=== PATIENT | male | born 1960 | race Caucasian/White ===

== ENCOUNTER 2022-06-24 20:46 | Inpatient (IN) | payer MEDICAID ==
[2022-06-24] MEDS ORDERED: Furosemide 40 MG/4 ML VIAL IVPUSH ONE (21:21)
[2022-06-24] MEDS: Sodium Chloride 0.9% 10 ML Syringe FLUSH PRN (21:26)
[2022-06-24 21:37] LABS: INR 1.25; PROTHROMBIN TIME 13.2 SECONDS (9.7-12.0)
[2022-06-24 21:38] LABS: PTT,PARTIAL THROMBOPLSTIN TIME 23.4 SECONDS (21.7-31.4)
[2022-06-24 21:39] LABS: BASE EXCESS ARTERIAL -1.9 (-2-2.0); BICARBONATE,ARTERIAL 22.4 meq/L (22.0-26.0); O2 SATURATION ARTERIAL 90.4 % (96.0-97.0); PCO2 ARTERIAL 38.9 mmHg (35.0-45.0)
[2022-06-24 21:42] LABS: BASOPHILS ABSOLUTE AUTO 0.05 K/mm3 (0.01-0.08); BASOPHILS PERCENT AUTO 0.5 % (0.1-1.2); EOSINOPHILS ABSOLUTE AUTO 0.25 K/mm3 (0.04-0.54); EOSINOPHILS PERCENT AUTO 2.6 (0.8-7.0); HEMATOCRIT 50.1 % (40.1-51.0); HEMOGLOBIN 15.9 gm/dl (13.7-17.5); IMMATURE GRAN ABSOLUTE AUTO 0.07 K/mm3 (0.00-0.10); IMMATURE GRAN PERCENT AUTO 0.7 % (<=1.0); LYMPHOCYTES ABSOLUTE AUTO 2.04 K/mm3 (1.32-3.57); LYMPHOCYTES PERCENT AUTO 20.9 % (21.8-53.1); MEAN CORPUSCULAR HEMOGLOBIN 29.3 pg (25.7-32.2); MEAN CORPUSCULAR HGB CONC 31.7 g/dl (32.2-35.5); MEAN CORPUSCULAR VOLUME 92.3 fl (79.0-92.2); MEAN PLATELET VOLUME 12.8 fl (9.4-12.3); MONOCYTES ABSOLUTE AUTO 0.88 K/mm3 (0.30-0.82); NEUTROPHILS ABSOLUTE AUTO 6.48 K/mm3 (1.78-5.38); NEUTROPHILS PERCENT AUTO 66.3 % (34.0-67.9); PLATELET COUNT,PLT 148 K/mm3 (163-337); RED BLOOD CELL COUNT 5.43 M/mm3 (4.63-6.08); WHITE BLOOD CELL COUNT,WBC 9.77 K/mm3 (4.23-9.07)
[2022-06-24] MEDS ORDERED: LORazepam 2 MG/ML SDV IVPUSH ONE (21:42)
[2022-06-24 21:49] LABS: A/G RATIO 0.7 (1-2); ANION GAP 12.5 (5-15); BILIRUBIN TOTAL 1.1 mg/dL (0.2-1.0); BUN/CREATININE RATIO 16.9 (14-18); C-REACTIVE PROTEIN 1.2 mg/dL (<1.0); CREATININE 1.3 mg/dL (0.7-1.3); EST CRCL DRUG DOSING (CG) 58.46 mL/min; POTASSIUM,K 4.5 mEq/L (3.5-5.1); PROTEIN TOTAL,TP 7.1 g/dl (6.4-8.2)
[2022-06-24] MEDS ORDERED: Diltiazem 25 MG/5 ML SDV IVPUSH ONE ×2 (22:16→22:51)
[2022-06-24 22:30] LABS: CORONAVIRUS COVID-19 NAA NEGATIVE (NEGATIVE); INFLUENZA A NAA NEGATIVE (NEGATIVE); RESPIRATORY SYNCYTIAL VIR NAA NEGATIVE (NEGATIVE)
[2022-06-24] MEDS ORDERED: Diltiazem 125 MG in Sodium Chloride 0.9% 100 ML IV SCH (23:45)
[2022-06-25] MEDS ORDERED: Furosemide 40 MG/4 ML VIAL IVPUSH ONE ×3 (00:28→06:55)
[2022-06-25] MEDS ORDERED: Apixaban 5 MG Tab PO ONE (01:40)
[2022-06-25 05:59] LABS: BASOPHILS ABSOLUTE AUTO 0.03 K/mm3 (0.01-0.08); BASOPHILS PERCENT AUTO 0.3 % (0.1-1.2); EOSINOPHILS ABSOLUTE AUTO 0.33 K/mm3 (0.04-0.54); EOSINOPHILS PERCENT AUTO 3.7 (0.8-7.0); HEMATOCRIT 44.7 % (40.1-51.0); IMMATURE GRAN ABSOLUTE AUTO 0.06 K/mm3 (0.00-0.10); IMMATURE GRAN PERCENT AUTO 0.7 % (<=1.0); LYMPHOCYTES ABSOLUTE AUTO 1.86 K/mm3 (1.32-3.57); LYMPHOCYTES PERCENT AUTO 20.7 % (21.8-53.1); MEAN CORPUSCULAR HEMOGLOBIN 29.4 pg (25.7-32.2); MEAN CORPUSCULAR HGB CONC 32.2 g/dl (32.2-35.5); MEAN CORPUSCULAR VOLUME 91.4 fl (79.0-92.2); MEAN PLATELET VOLUME 13.5 fl (9.4-12.3); MONOCYTES ABSOLUTE AUTO 0.94 K/mm3 (0.30-0.82); MONOCYTES PERCENT AUTO 10.5 % (5.3-12.2); NEUTROPHILS ABSOLUTE AUTO 5.77 K/mm3 (1.78-5.38); NEUTROPHILS PERCENT AUTO 64.1 % (34.0-67.9); PLATELET COUNT,PLT 130 K/mm3 (163-337); RED BLOOD CELL COUNT 4.89 M/mm3 (4.63-6.08); WHITE BLOOD CELL COUNT,WBC 8.99 K/mm3 (4.23-9.07)
[2022-06-25] MEDS ORDERED: Diltiazem IR 30 MG Tab PO ONE (06:00)
[2022-06-25 06:13] LABS: HEMOGLOBIN 14.4 gm/dl (13.7-17.5)
[2022-06-25 06:14] LABS: BUN/CREATININE RATIO 21.1 (14-18); CALCIUM 7.9 mg/dL (8.5-10.1); CREATININE 0.9 mg/dL (0.7-1.3); EST CRCL DRUG DOSING (CG) 84.44 mL/min
[2022-06-25 06:23] LABS: ANION GAP 12.5 (5-15)
[2022-06-25 06:26] LABS: POTASSIUM,K 3.5 mEq/L (3.5-5.1)
[2022-06-25] MEDS: Nicotine 14 MG/24 Hr Patch TRDERM SCH (09:10)
[2022-06-25] MEDS: Insulin Regular, Human 100 Units/ML 3 ML Vial SUBCUT SCH ×3 (09:12→18:39)
[2022-06-25] MEDS: Apixaban 5 MG Tab PO SCH ×2 (09:12→20:53)
[2022-06-25] MEDS: cefTRIAXone 2 GM in Sodium Chloride 0.9% 100 ML IV SCH (10:23)
[2022-06-25 10:41] LABS: HEMOGLOBIN A1C 12.7 %
[2022-06-25] MEDS: LORazepam 1 MG Tab PO SCH ×2 (13:32→18:40)
[2022-06-25] MEDS ORDERED: metFORMIN 500 MG Tab PO SCH (17:00)
[2022-06-25] MEDS: metFORMIN 500 MG Tab PO SCH (17:20)
[2022-06-25] MEDS: Diltiazem IR 30 MG Tab PO SCH (18:00)
[2022-06-26] MEDS: Diltiazem IR 30 MG Tab PO SCH ×4 (00:07→17:13)
[2022-06-26] MEDS: LORazepam 1 MG Tab PO SCH ×4 (00:07→18:06)
[2022-06-26] MEDS: metFORMIN 500 MG Tab PO SCH ×2 (06:00→17:13)
[2022-06-26 06:05] LABS: BASOPHILS ABSOLUTE AUTO 0.02 K/mm3 (0.01-0.08); BASOPHILS PERCENT AUTO 0.2 % (0.1-1.2); EOSINOPHILS ABSOLUTE AUTO 0.48 K/mm3 (0.04-0.54); EOSINOPHILS PERCENT AUTO 5.3 (0.8-7.0); HEMATOCRIT 47.3 % (40.1-51.0); HEMOGLOBIN 15.3 gm/dl (13.7-17.5); IMMATURE GRAN ABSOLUTE AUTO 0.07 K/mm3 (0.00-0.10); IMMATURE GRAN PERCENT AUTO 0.8 % (<=1.0); LYMPHOCYTES ABSOLUTE AUTO 1.76 K/mm3 (1.32-3.57); LYMPHOCYTES PERCENT AUTO 19.4 % (21.8-53.1); MEAN CORPUSCULAR HEMOGLOBIN 29.7 pg (25.7-32.2); MEAN CORPUSCULAR HGB CONC 32.3 g/dl (32.2-35.5); MEAN CORPUSCULAR VOLUME 91.8 fl (79.0-92.2); MEAN PLATELET VOLUME 12.7 fl (9.4-12.3); MONOCYTES PERCENT AUTO 12.1 % (5.3-12.2); NEUTROPHILS ABSOLUTE AUTO 5.66 K/mm3 (1.78-5.38); NEUTROPHILS PERCENT AUTO 62.2 % (34.0-67.9); PLATELET COUNT,PLT 133 K/mm3 (163-337); RED BLOOD CELL COUNT 5.15 M/mm3 (4.63-6.08); WHITE BLOOD CELL COUNT,WBC 9.09 K/mm3 (4.23-9.07)
[2022-06-26 06:41] LABS: A/G RATIO 0.7 (1-2); ALBUMIN 2.8 g/dl (3.4-5.0); ANION GAP 9.7 (5-15); BILIRUBIN TOTAL 1.2 mg/dL (0.2-1.0); CALCIUM 8.3 mg/dL (8.5-10.1); MAGNESIUM 2.1 mg/dL (1.8-2.4); POTASSIUM,K 3.7 mEq/L (3.5-5.1); PROTEIN TOTAL,TP 6.6 g/dl (6.4-8.2)
[2022-06-26] MEDS: Apixaban 5 MG Tab PO SCH ×2 (08:00→20:13)
[2022-06-26] MEDS: Nicotine 14 MG/24 Hr Patch TRDERM SCH (08:01)
[2022-06-26] MEDS ORDERED: Metoprolol Tartrate 25 MG Tab PO SCH (09:00)
[2022-06-26] MEDS: Insulin Regular, Human 100 Units/ML 3 ML Vial SUBCUT SCH (09:20)
[2022-06-26] MEDS: cefTRIAXone 2 GM in Sodium Chloride 0.9% 100 ML IV SCH (09:54)
[2022-06-26] MEDS: Insulin Lispro 100 Unit/ML 3 ML KwikPen SUBCUT SCH ×2 (12:03→16:53)
[2022-06-26] MEDS: methylPREDNISolone Sodium Succinate 40 MG/1 ML SDV IVPUSH SCH ×2 (12:05→20:13)
[2022-06-26] MEDS ORDERED: Metoprolol Tartrate 25 MG Tab PO ONE (16:00)
[2022-06-26] MEDS: atorvaSTATin 20 MG Tab PO SCH (20:13)
[2022-06-26] MEDS: Carvedilol 6.25 MG Tab PO SCH (20:13)
[2022-06-26] MEDS: traZODone 50 MG Tab PO PRN (20:59)
[2022-06-27] MEDS: LORazepam 1 MG Tab PO SCH ×5 (00:07→23:32)
[2022-06-27] MEDS: Diltiazem IR 30 MG Tab PO SCH ×5 (00:07→23:31)
[2022-06-27] MEDS: methylPREDNISolone Sodium Succinate 40 MG/1 ML SDV IVPUSH SCH ×3 (03:40→19:02)
[2022-06-27] MEDS: metFORMIN 500 MG Tab PO SCH ×2 (06:02→16:29)
[2022-06-27] MEDS: Insulin Lispro 100 Unit/ML 3 ML KwikPen SUBCUT SCH ×3 (07:17→16:28)
[2022-06-27] MEDS: Nicotine 14 MG/24 Hr Patch TRDERM SCH (08:00)
[2022-06-27] MEDS: Apixaban 5 MG Tab PO SCH ×2 (08:00→20:24)
[2022-06-27] MEDS: Lisinopril 2.5 MG Tab PO SCH (08:00)
[2022-06-27] MEDS: Carvedilol 6.25 MG Tab PO SCH ×2 (08:00→20:25)
[2022-06-27 09:01] LABS: EOSINOPHILS PERCENT AUTO 0 (0.8-7.0); HEMATOCRIT 46.5 % (40.1-51.0); HEMOGLOBIN 15.2 gm/dl (13.7-17.5); IMMATURE GRAN ABSOLUTE AUTO 0.03 K/mm3 (0.00-0.10); IMMATURE GRAN PERCENT AUTO 0.3 % (<=1.0); LYMPHOCYTES ABSOLUTE AUTO 0.72 K/mm3 (1.32-3.57); LYMPHOCYTES PERCENT AUTO 6.8 % (21.8-53.1); MEAN CORPUSCULAR HEMOGLOBIN 29.5 pg (25.7-32.2); MEAN CORPUSCULAR HGB CONC 32.7 g/dl (32.2-35.5); MEAN CORPUSCULAR VOLUME 90.3 fl (79.0-92.2); MEAN PLATELET VOLUME 12.6 fl (9.4-12.3); MONOCYTES ABSOLUTE AUTO 0.19 K/mm3 (0.30-0.82); MONOCYTES PERCENT AUTO 1.8 % (5.3-12.2); NEUTROPHILS ABSOLUTE AUTO 9.72 K/mm3 (1.78-5.38); NEUTROPHILS PERCENT AUTO 91.1 % (34.0-67.9); PLATELET COUNT,PLT 149 K/mm3 (163-337); RED BLOOD CELL COUNT 5.15 M/mm3 (4.63-6.08); WHITE BLOOD CELL COUNT,WBC 10.66 K/mm3 (4.23-9.07)
[2022-06-27] MEDS: cefTRIAXone 2 GM in Sodium Chloride 0.9% 100 ML IV SCH (09:09)
[2022-06-27 09:30] LABS: A/G RATIO 0.7 (1-2); ALBUMIN 2.6 g/dl (3.4-5.0); ANION GAP 14.5 (5-15); BILIRUBIN TOTAL 0.8 mg/dL (0.2-1.0); CALCIUM 7.9 mg/dL (8.5-10.1); POTASSIUM,K 4.5 mEq/L (3.5-5.1); PROTEIN TOTAL,TP 6.5 g/dl (6.4-8.2)
[2022-06-27] MEDS ORDERED: Insulin Lispro 100 Unit/ML 3 ML KwikPen SUBCUT ONE (10:00)
[2022-06-27 11:37] LABS: SLIDE REVIEW ABNORMAL SMEAR
[2022-06-27] MEDS ORDERED: Insulin Regular, Human 100 Units/ML 3 ML Vial SUBCUT ONE (12:00)
[2022-06-27] MEDS: Glimepiride 2 MG Tab PO SCH (16:29)
[2022-06-27] MEDS: Sodium Chloride 0.9% 10 ML Syringe FLUSH PRN (19:03)
[2022-06-27] MEDS: atorvaSTATin 20 MG Tab PO SCH (20:25)
[2022-06-27] MEDS: traZODone 50 MG Tab PO PRN (20:28)
[2022-06-28] MEDS: LORazepam 1 MG Tab PO SCH ×3 (00:14→19:02)
[2022-06-28] MEDS: methylPREDNISolone Sodium Succinate 40 MG/1 ML SDV IVPUSH SCH (04:00)
[2022-06-28 05:53] LABS: BASOPHILS ABSOLUTE AUTO 0.01 K/mm3 (0.01-0.08); EOSINOPHILS ABSOLUTE AUTO 0.01 K/mm3 (0.04-0.54); EOSINOPHILS PERCENT AUTO 0 (0.8-7.0); HEMATOCRIT 42.7 % (40.1-51.0); HEMOGLOBIN 13.9 gm/dl (13.7-17.5); IMMATURE GRAN ABSOLUTE AUTO 0.09 K/mm3 (0.00-0.10); IMMATURE GRAN PERCENT AUTO 0.4 % (<=1.0); LYMPHOCYTES ABSOLUTE AUTO 0.87 K/mm3 (1.32-3.57); LYMPHOCYTES PERCENT AUTO 4.1 % (21.8-53.1); MEAN CORPUSCULAR HEMOGLOBIN 29.8 pg (25.7-32.2); MEAN CORPUSCULAR HGB CONC 32.6 g/dl (32.2-35.5); MEAN CORPUSCULAR VOLUME 91.4 fl (79.0-92.2); MEAN PLATELET VOLUME 13.3 fl (9.4-12.3); MONOCYTES ABSOLUTE AUTO 0.58 K/mm3 (0.30-0.82); MONOCYTES PERCENT AUTO 2.8 % (5.3-12.2); NEUTROPHILS ABSOLUTE AUTO 19.43 K/mm3 (1.78-5.38); NEUTROPHILS PERCENT AUTO 92.7 % (34.0-67.9); PLATELET COUNT,PLT 139 K/mm3 (163-337); RED BLOOD CELL COUNT 4.67 M/mm3 (4.63-6.08); WHITE BLOOD CELL COUNT,WBC 20.99 K/mm3 (4.23-9.07)
[2022-06-28 06:06] LABS: A/G RATIO 0.7 (1-2); ALBUMIN 2.5 g/dl (3.4-5.0); ANION GAP 11.8 (5-15); BILIRUBIN TOTAL 0.4 mg/dL (0.2-1.0); CALCIUM 7.8 mg/dL (8.5-10.1); POTASSIUM,K 3.8 mEq/L (3.5-5.1); PROTEIN TOTAL,TP 6.1 g/dl (6.4-8.2)
[2022-06-28] MEDS: Diltiazem IR 30 MG Tab PO SCH ×4 (06:11→22:00)
[2022-06-28 06:23] LABS: SLIDE REVIEW ABNORMAL SMEAR
[2022-06-28] MEDS ORDERED: Furosemide 40 MG/4 ML VIAL IVPUSH ONE ×2 (06:33→12:55)
[2022-06-28] MEDS: Glimepiride 2 MG Tab PO SCH ×2 (06:38→16:29)
[2022-06-28] MEDS: metFORMIN 500 MG Tab PO SCH ×2 (06:38→16:29)
[2022-06-28] MEDS ORDERED: predniSONE 20 MG Tab PO SCH (07:00)
[2022-06-28] MEDS: Insulin Lispro 100 Unit/ML 3 ML KwikPen SUBCUT SCH ×3 (07:30→16:29)
[2022-06-28] MEDS: Carvedilol 6.25 MG Tab PO SCH (08:19)
[2022-06-28] MEDS: Nicotine 14 MG/24 Hr Patch TRDERM SCH (08:19)
[2022-06-28] MEDS: Potassium Chloride 20 MEQ Tab.ER PO SCH (08:19)
[2022-06-28] MEDS: Apixaban 5 MG Tab PO SCH ×2 (08:19→20:40)
[2022-06-28] MEDS: Lisinopril 2.5 MG Tab PO SCH ×2 (08:19→10:09)
[2022-06-28] MEDS: cefTRIAXone 2 GM in Sodium Chloride 0.9% 100 ML IV SCH (10:11)
[2022-06-28] MEDS ORDERED: Insulin Lispro 100 Unit/ML 3 ML KwikPen SUBCUT ONE (12:53)
[2022-06-28] MEDS ORDERED: Potassium Chloride 20 MEQ Tab.ER PO ONE (12:55)
[2022-06-28] MEDS: atorvaSTATin 20 MG Tab PO SCH (20:40)
[2022-06-28] MEDS: Carvedilol 12.5 MG Tab PO SCH (20:40)
[2022-06-28] MEDS: traZODone 50 MG Tab PO PRN (20:40)
[2022-06-29 05:53] LABS: ANION GAP 10.2 (5-15); BUN/CREATININE RATIO 24.5 (14-18); CALCIUM 7.6 mg/dL (8.5-10.1); CREATININE 1.1 mg/dL (0.7-1.3); EST CRCL DRUG DOSING (CG) 69.09 mL/min; POTASSIUM,K 4.2 mEq/L (3.5-5.1)
[2022-06-29] MEDS: Diltiazem IR 30 MG Tab PO SCH ×3 (06:18→22:44)
[2022-06-29] MEDS: LORazepam 1 MG Tab PO SCH (06:23)
[2022-06-29] MEDS: Glimepiride 2 MG Tab PO SCH ×2 (06:24→17:39)
[2022-06-29] MEDS: metFORMIN 500 MG Tab PO SCH ×2 (06:24→17:38)
[2022-06-29] MEDS ORDERED: predniSONE 20 MG Tab PO SCH (07:00)
[2022-06-29] MEDS ORDERED: Insulin Glargine,Human Rec. Analog 100 Units/ML 3 ML Pen SUBCUT SCH (09:00)
[2022-06-29] MEDS ORDERED: Furosemide 40 MG/4 ML VIAL IVPUSH ONE (09:00)
[2022-06-29] MEDS: Apixaban 5 MG Tab PO SCH ×2 (09:01→22:46)
[2022-06-29] MEDS: Potassium Chloride 20 MEQ Tab.ER PO SCH (09:01)
[2022-06-29] MEDS: Carvedilol 12.5 MG Tab PO SCH ×2 (09:01→22:44)
[2022-06-29] MEDS: Lisinopril 2.5 MG Tab PO SCH (09:08)
[2022-06-29] MEDS: Nicotine 14 MG/24 Hr Patch TRDERM SCH (09:08)
[2022-06-29] MEDS: cefTRIAXone 2 GM in Sodium Chloride 0.9% 100 ML IV SCH (09:10)
[2022-06-29] MEDS: Insulin Lispro 100 Unit/ML 3 ML KwikPen SUBCUT SCH ×3 (09:22→17:39)
[2022-06-29] MEDS: LORazepam 0.5 MG Tab PO SCH (18:37)
[2022-06-29] MEDS: traZODone 50 MG Tab PO PRN (22:43)
[2022-06-29] MEDS: atorvaSTATin 20 MG Tab PO SCH (22:45)
[2022-06-30 06:01] LABS: ANION GAP 7.5 (5-15); BUN/CREATININE RATIO 24.5 (14-18); CALCIUM 7.8 mg/dL (8.5-10.1); CREATININE 1.1 mg/dL (0.7-1.3); EST CRCL DRUG DOSING (CG) 69.09 mL/min; POTASSIUM,K 3.5 mEq/L (3.5-5.1)
[2022-06-30] MEDS ORDERED: Carvedilol 12.5 MG Tab PO SCH (07:00)
[2022-06-30] MEDS: LORazepam 0.5 MG Tab PO SCH (07:01)
[2022-06-30] MEDS: Calcium Carbonate 500 MG Tab.Chew PO PRN ×2 (07:01→09:59)
[2022-06-30] MEDS: metFORMIN 500 MG Tab PO SCH (07:02)
[2022-06-30] MEDS: Insulin Lispro 100 Unit/ML 3 ML KwikPen SUBCUT SCH ×2 (08:17→11:47)
[2022-06-30] MEDS ORDERED: Furosemide 40 MG Tab PO SCH (09:00)
[2022-06-30] MEDS ORDERED: Potassium Chloride 20 MEQ Tab.ER PO SCH (09:00)
[2022-06-30] MEDS ORDERED: Insulin Glargine,Human Rec. Analog 100 Units/ML 3 ML Pen SUBCUT SCH ×2 (09:00)
[2022-06-30] MEDS: Apixaban 5 MG Tab PO SCH (09:14)
[2022-06-30] MEDS: Nicotine 14 MG/24 Hr Patch TRDERM SCH (09:16)
[2022-06-30] MEDS: Lisinopril 2.5 MG Tab PO SCH (09:20)
[2022-06-30] MEDS: cefTRIAXone 2 GM in Sodium Chloride 0.9% 100 ML IV SCH (09:59)
[2022-06-30] MEDS ORDERED: Bisacodyl 10 MG Supp RECTAL ONE (10:13)
[2022-06-30] MEDS ORDERED: Docusate Sodium 100 MG Cap PO PRN (10:13)
== END 2022-06-30 15:43 | disposition home or self-care (01) | DRG 291 ==
LOC: JD.ED 20:46 → JD.ICU 06-25 02:16 → JD.MS 06-28 16:34
PROVIDERS: ADMIT Internal Medicine; ATTEND Internal Medicine
PROC: 5A09357 Assistance with Respiratory Ventilation, Less than 24 Consecutive Hours, Continuous Positive Airway Pressure (ICD-10-PCS; principal; 2022-06-25)
DX: I11.0 Hypertensive heart disease with heart failure (principal); I50.23 Acute on chronic systolic (congestive) heart failure; J96.21 Acute and chronic respiratory failure with hypoxia; I48.92 Unspecified atrial flutter; J44.1 Chronic obstructive pulmonary disease with (acute) exacerbation; I45.10 Unspecified right bundle-branch block; I48.0 Paroxysmal atrial fibrillation; F41.9 Anxiety disorder, unspecified; F90.9 Attention-deficit hyperactivity disorder, unspecified type; Z20.822 Contact with and (suspected) exposure to COVID-19; F17.210 Nicotine dependence, cigarettes, uncomplicated; E11.65 Type 2 diabetes mellitus with hyperglycemia; Z79.01 Long term (current) use of anticoagulants; Z79.899 Other long term (current) drug therapy; Z98.890 Other specified postprocedural states
CPT/HCPCS: 0241U; 36415; 36600; 71045; 71045-26; 80048; 80053; 82803; 82947; 83036; 83735; 83880; 84484; 85025; 85610; 85730; 86140; 93005; 93307; 94660; 96374; 96375; 96376; 99285-25; A9270-GY; J0696; J1815; J1815-GY; J1940; J2060; J2920; J3490; J7512

== ENCOUNTER 2023-11-25 17:50 | Observation (INO) | payer MEDICAID ==
[2023-11-25] MEDS ORDERED: Sodium Chloride 0.9% 10 ML Syringe FLUSH PRN (19:15)
[2023-11-25] MEDS ORDERED: Ibuprofen 600 MG Tab PO PRN (19:27)
[2023-11-25] MEDS ORDERED: Acetaminophen 325 MG Tab PO PRN (19:27)
[2023-11-25] MEDS ORDERED: Ondansetron 4 MG Tab.DIS PO PRN (19:27)
[2023-11-25 19:34] LABS: BASOPHILS ABSOLUTE AUTO 0.1 K/mm3 (0.0-0.2); BASOPHILS PERCENT AUTO 0.5 % (0.0-1.0); EOSINOPHILS ABSOLUTE AUTO 0.3 K/mm3 (0.0-0.4); EOSINOPHILS PERCENT AUTO 1.9 % (0.0-6.0); HEMATOCRIT 46.7 % (42.0-52.0); IMMATURE GRAN ABSOLUTE AUTO 0.12 K/mm3 (0.00-0.05); IMMATURE GRAN PERCENT AUTO 0.9 % (0.0-0.4); LYMPHOCYTES ABSOLUTE AUTO 2.2 K/mm3 (1.0-4.8); LYMPHOCYTES PERCENT AUTO 16.4 % (24.0-44.0); MEAN CORPUSCULAR HEMOGLOBIN 30.6 pg (28.0-32.0); MEAN CORPUSCULAR HGB CONC 34.3 g/dl (32.0-36.0); MEAN CORPUSCULAR VOLUME 89.3 fl (83.0-99.0); MEAN PLATELET VOLUME 11.7 fl (9.4-12.4); MONOCYTES ABSOLUTE AUTO 1.3 K/mm3 (0.0-0.8); MONOCYTES PERCENT AUTO 9.7 % (0.0-8.0); NEUTROPHILS ABSOLUTE AUTO 9.5 K/mm3 (1.8-7.7); NEUTROPHILS PERCENT AUTO 70.6 % (41.0-71.0); PLATELET COUNT,PLT 213 K/mm3 (150-400); RED BLOOD CELL COUNT 5.23 M/mm3 (4.52-5.90); WHITE BLOOD CELL COUNT,WBC 13.39 K/mm3 (3.9-11.3)
[2023-11-25 19:54] LABS: A/G RATIO 0.7 (1-2); ALBUMIN 3.6 g/dl (3.4-5.0); ANION GAP 16.1 (5-15); BILIRUBIN TOTAL 0.6 mg/dL (0.2-1.0); BUN/CREATININE RATIO 27.5 (14-18); CALCIUM 9.5 mg/dL (8.5-10.1); CREATININE 1.2 mg/dL (0.7-1.3); EST CRCL DRUG DOSING (CG) 64.64 mL/min; PROTEIN TOTAL,TP 8.8 g/dl (6.4-8.2)
[2023-11-25] MEDS: Lactated Ringers 1,000 ML IV SCH (19:55)
[2023-11-25] MEDS: Piperacillin/Tazobactam 4.5 GM in Sodium Chloride 0.9% 100 ML IV ONE (19:56)
[2023-11-25 19:57] LABS: LACTIC ACID 1.4 mmol/L (0.4-2.0)
[2023-11-25 20:01] LABS: POTASSIUM,K 5.1 mEq/L (3.5-5.1)
[2023-11-25] MEDS: atorvaSTATin 20 MG Tab PO SCH (21:00)
[2023-11-25] MEDS: HYDROmorphone 0.5 MG/0.5 ML Syringe IVPUSH PRN (22:41)
[2023-11-25] MEDS: Piperacillin/Tazobactam 4.5 GM in Sodium Chloride 0.9% 100 ML IV SCH (23:14)
[2023-11-26] MEDS: metFORMIN 500 MG Tab PO SCH ×2 (06:19→17:22)
[2023-11-26] MEDS: Carvedilol 12.5 MG Tab PO SCH (06:19)
[2023-11-26] MEDS ORDERED: EPINEPHrine 1 MG/ML SDV ONE (06:25)
[2023-11-26] MEDS ORDERED: Lidocaine 1% 4 ML ONE (06:41)
[2023-11-26] MEDS ORDERED: Midazolam 1 MG/ML 2 ML SDV ONE (06:41)
[2023-11-26] MEDS ORDERED: fentaNYL 100 MCG/2 ML SDV ONE (06:41)
[2023-11-26] MEDS ORDERED: Ondansetron 4 MG/2 ML SDV ONE (06:41)
[2023-11-26] MEDS ORDERED: Lidocaine 1% PF 2 ML SDV ONE ×2 (06:41)
[2023-11-26] MEDS ORDERED: Dexamethasone 4 MG/ML 5 ML MDV ONE (06:41)
[2023-11-26] MEDS ORDERED: Propofol 200 MG/20 ML SDV ONE (06:41)
[2023-11-26] MEDS ORDERED: Ketorolac 30 MG/ML SDV ONE (06:41)
[2023-11-26] MEDS ORDERED: ceFAZolin 2 GM Vial ONE (07:02)
[2023-11-26] MEDS ORDERED: Rocuronium 50 MG/5 ML Vial ONE (07:03)
[2023-11-26] MEDS ORDERED: Metoclopramide 10 MG/2 ML SDV ONE (07:13)
[2023-11-26] MEDS ORDERED: Succinylcholine 200 MG/10 ML MDV ONE (07:31)
[2023-11-26] MEDS: Bupivacaine 0.5% 30 ML SDV ONE (07:50)
[2023-11-26] MEDS: ePHEDrine 50 MG/ML SDV ONE (07:50)
[2023-11-26] MEDS ORDERED: HYDROmorphone 0.5 MG/0.5 ML Syringe IVPUSH PRN (07:53)
[2023-11-26] MEDS ORDERED: fentaNYL 100 MCG/2 ML SDV IVPUSH PRN (07:53)
[2023-11-26] MEDS ORDERED: Ondansetron 4 MG/2 ML SDV IVPUSH PRN (07:53)
[2023-11-26] MEDS ORDERED: Acetaminophen 325 MG Tab PO PRN (08:32)
[2023-11-26] MEDS ORDERED: Ibuprofen 600 MG Tab PO PRN (08:33)
[2023-11-26] MEDS: Piperacillin/Tazobactam 4.5 GM in Sodium Chloride 0.9% 100 ML IV SCH (09:51)
[2023-11-26] MEDS: oxyCODONE 5 MG Tab PO PRN (11:03)
[2023-11-26] MEDS ORDERED: Carvedilol 12.5 MG Tab PO SCH (17:00)
[2023-11-26] MEDS ORDERED: atorvaSTATin 20 MG Tab PO SCH (21:00)
== END 2023-11-26 19:10 | disposition home or self-care (01) ==
LOC: JD.ED 17:50 → JD.MS 19:27
PROVIDERS: ADMIT Surgery; ATTEND Surgery
DX: K61.0 Anal abscess (principal); I10 Essential (primary) hypertension; E11.9 Type 2 diabetes mellitus without complications; J44.9 Chronic obstructive pulmonary disease, unspecified; I48.91 Unspecified atrial fibrillation; Z79.01 Long term (current) use of anticoagulants; Z79.84 Long term (current) use of oral hypoglycemic drugs; Z79.899 Other long term (current) drug therapy
CPT/HCPCS: 36415; 80053; 82947; 83605; 85025; 87070; 87075; 87077; 87186; 87205; A9270-GY; J0171; J0330; J0665; J0690; J1100; J1171; J1885; J2250; J2405; J2543; J2704; J2765; J3010; J3490; J7120

== ENCOUNTER 2023-11-27 11:41 | Inpatient (IN) | payer MEDICAID ==
[2023-11-27] MEDS ORDERED: Sodium Chloride 0.9% 10 ML Syringe FLUSH PRN ×2 (11:43→17:54)
[2023-11-27] MEDS ORDERED: Acetaminophen 325 MG Tab PO PRN (11:43)
[2023-11-27] MEDS ORDERED: Ondansetron 4 MG Tab.DIS PO PRN (11:43)
[2023-11-27] MEDS ORDERED: Lidocaine 1% 5 ML VIAL ONE (13:09)
[2023-11-27 13:28] LABS: BASOPHILS ABSOLUTE AUTO 0.1 K/mm3 (0.0-0.2); BASOPHILS PERCENT AUTO 0.5 % (0.0-1.0); EOSINOPHILS ABSOLUTE AUTO 0.2 K/mm3 (0.0-0.4); EOSINOPHILS PERCENT AUTO 1.5 % (0.0-6.0); HEMATOCRIT 42.7 % (42.0-52.0); IMMATURE GRAN ABSOLUTE AUTO 0.19 K/mm3 (0.00-0.05); IMMATURE GRAN PERCENT AUTO 1.4 % (0.0-0.4); LYMPHOCYTES ABSOLUTE AUTO 1.8 K/mm3 (1.0-4.8); MEAN CORPUSCULAR HEMOGLOBIN 30.3 pg (28.0-32.0); MEAN CORPUSCULAR HGB CONC 33.3 g/dl (32.0-36.0); MEAN PLATELET VOLUME 11.4 fl (9.4-12.4); MONOCYTES ABSOLUTE AUTO 1.3 K/mm3 (0.0-0.8); MONOCYTES PERCENT AUTO 9.9 % (0.0-8.0); NEUTROPHILS PERCENT AUTO 73.7 % (41.0-71.0); PLATELET COUNT,PLT 165 K/mm3 (150-400); RED BLOOD CELL COUNT 4.69 M/mm3 (4.52-5.90); WHITE BLOOD CELL COUNT,WBC 13.54 K/mm3 (3.9-11.3)
[2023-11-27 13:44] LABS: HEMOGLOBIN 14.2 gm/dl (14.0-18.0)
[2023-11-27] MEDS: metroNIDAZOLE/Normal Saline 500 MG in Premix Bag 1 BAG IV SCH (13:45)
[2023-11-27] MEDS: Lactated Ringers 1,000 ML IV SCH ×2 (13:45→19:55)
[2023-11-27] MEDS: HYDROmorphone 0.5 MG/0.5 ML Syringe IVPUSH PRN ×2 (13:45→18:06)
[2023-11-27 14:02] LABS: ANION GAP 13.4 (5-15); CALCIUM 8.5 mg/dL (8.5-10.1); CREATININE 1.1 mg/dL (0.7-1.3); EST CRCL DRUG DOSING (CG) 70.52 mL/min; MAGNESIUM 2.3 mg/dL (1.8-2.4); PHOSPHORUS 2.6 mg/dL (2.6-4.7); POTASSIUM,K 4.4 mEq/L (3.5-5.1)
[2023-11-27] MEDS: Insulin Glargine,Human Rec. Analog 100 Units/ML 3 ML Pen SUBCUT SCH (14:57)
[2023-11-27] MEDS: Levofloxacin/Dextrose 5%-Water 750 MG in Premix Bag 1 BAG IV SCH (14:57)
[2023-11-27] MEDS ORDERED: Propofol 200 MG/20 ML SDV ONE (16:36)
[2023-11-27] MEDS ORDERED: fentaNYL 100 MCG/2 ML SDV ONE (16:36)
[2023-11-27] MEDS ORDERED: Midazolam 1 MG/ML 2 ML SDV ONE (16:37)
[2023-11-27] MEDS: Lidocaine 1% 30 ML SDV ONE (17:16)
[2023-11-27] MEDS: EPINEPHrine 1 MG/ML SDV ONE (17:16)
[2023-11-27] MEDS: Insulin Lispro 100 Unit/ML 3 ML KwikPen SUBCUT SCH (17:30)
[2023-11-27] MEDS ORDERED: Ondansetron 4 MG/2 ML SDV IVPUSH PRN (17:54)
[2023-11-27] MEDS ORDERED: fentaNYL 100 MCG/2 ML SDV IVPUSH PRN (17:54)
[2023-11-27] MEDS: Carvedilol 12.5 MG Tab PO SCH (19:55)
[2023-11-27] MEDS: oxyCODONE 5 MG Tab PO PRN (19:59)
[2023-11-27] MEDS ORDERED: Sodium Chloride 0.9% 10 ML Syringe FLUSH SCH (21:00)
[2023-11-28] MEDS: Sodium Chloride 0.9% 10 ML Syringe FLUSH SCH (02:52)
[2023-11-28 05:48] LABS: HEMATOCRIT 40.1 % (42.0-52.0); HEMOGLOBIN 13.2 gm/dl (14.0-18.0); MEAN CORPUSCULAR HEMOGLOBIN 29.9 pg (28.0-32.0); MEAN CORPUSCULAR HGB CONC 32.9 g/dl (32.0-36.0); MEAN CORPUSCULAR VOLUME 90.7 fl (83.0-99.0); MEAN PLATELET VOLUME 11.4 fl (9.4-12.4); PLATELET COUNT,PLT 163 K/mm3 (150-400); RED BLOOD CELL COUNT 4.42 M/mm3 (4.52-5.90); WHITE BLOOD CELL COUNT,WBC 13.66 K/mm3 (3.9-11.3)
[2023-11-28 06:33] LABS: BILIRUBIN TOTAL 0.7 mg/dL (0.2-1.0); CALCIUM 7.8 mg/dL (8.5-10.1); EST CRCL DRUG DOSING (CG) 77.57 mL/min; PROTEIN TOTAL,TP 7.1 g/dl (6.4-8.2)
[2023-11-28 06:42] LABS: A/G RATIO 0.7 (1-2); ALBUMIN 2.8 g/dl (3.4-5.0)
[2023-11-28 07:36] LABS: HEMOGLOBIN A1C 10.2 %
[2023-11-28] MEDS: Furosemide 40 MG Tab PO SCH (08:55)
[2023-11-28] MEDS: atorvaSTATin 20 MG Tab PO SCH (08:56)
[2023-11-28] MEDS: Sertraline 50 MG Tab PO SCH (08:56)
[2023-11-28] MEDS: Lactulose Soln 10 GM/15 ML 30 ML UD Cup PO PRN (12:52)
[2023-11-28] MEDS ORDERED: Labetalol 100 MG/20 ML MDV IVPUSH PRN (14:37)
[2023-11-28] MEDS ORDERED: hydrALAZINE 20 MG/ML SDV IVPUSH PRN (14:37)
[2023-11-28] MEDS: Levofloxacin/Dextrose 5%-Water 750 MG in Premix Bag 1 BAG IV SCH (15:27)
[2023-11-28] MEDS: Empagliflozin 25 MG Tab PO SCH (15:53)
[2023-11-28] MEDS: Enoxaparin 40 MG/0.4 ML Syringe SUBCUT SCH (16:16)
[2023-11-29 05:51] LABS: HEMATOCRIT 39.3 % (42.0-52.0); HEMOGLOBIN 13.4 gm/dl (14.0-18.0); MEAN CORPUSCULAR HEMOGLOBIN 30.9 pg (28.0-32.0); MEAN CORPUSCULAR HGB CONC 34.1 g/dl (32.0-36.0); MEAN CORPUSCULAR VOLUME 90.8 fl (83.0-99.0); MEAN PLATELET VOLUME 10.9 fl (9.4-12.4); PLATELET COUNT,PLT 161 K/mm3 (150-400); RED BLOOD CELL COUNT 4.33 M/mm3 (4.52-5.90); WHITE BLOOD CELL COUNT,WBC 9.33 K/mm3 (3.9-11.3)
== END 2023-11-29 17:50 | disposition home or self-care (01) | DRG 394 ==
LOC: JD.MS 11:44
PROVIDERS: ADMIT Surgery; ATTEND Surgery
PROC: 0J9B0ZZ Drainage of Perineum Subcutaneous Tissue and Fascia, Open Approach (ICD-10-PCS; principal; 2023-11-27 17:00)
DX: K61.1 Rectal abscess (principal); I50.22 Chronic systolic (congestive) heart failure; K61.0 Anal abscess; I48.0 Paroxysmal atrial fibrillation; I11.0 Hypertensive heart disease with heart failure; E11.65 Type 2 diabetes mellitus with hyperglycemia; B19.20 Unspecified viral hepatitis C without hepatic coma; H54.7 Unspecified visual loss; F90.9 Attention-deficit hyperactivity disorder, unspecified type; E66.9 Obesity, unspecified; J44.9 Chronic obstructive pulmonary disease, unspecified; F17.290 Nicotine dependence, other tobacco product, uncomplicated; F41.9 Anxiety disorder, unspecified; Z87.01 Personal history of pneumonia (recurrent); Z79.01 Long term (current) use of anticoagulants; Z79.84 Long term (current) use of oral hypoglycemic drugs; Z79.899 Other long term (current) drug therapy; Z91.199 Patient's noncompliance with other medical treatment and regimen due to unspecified reason; Z68.35 Body mass index [BMI] 35.0-35.9, adult
CPT/HCPCS: 36415; 80048; 80053; 82947; 83036; 83735; 84100; 85025; 85027; 87070; 87075; 87077; 87186; 87205; 94760; A9270-GY; J0171; J1171; J1650; J1815; J1815-GY; J1836; J1956; J2250; J2704; J3010; J3490; J7120

== ENCOUNTER 2023-12-01 13:39 | Emergency (ER) | payer MEDICAID ==
[2023-12-01] MEDS ORDERED: Naloxone 0.4 MG/ML SDV IVPUSH PRN ×2 (14:01→14:02)
[2023-12-01] MEDS ORDERED: Morphine 2 MG/ML SYRINGE IM ONE (14:01)
[2023-12-01] MEDS: Morphine 4 MG/ML Syringe IM ONE (14:33)
== END 2023-12-01 15:41 ==
LOC: JD.ED 13:39
DX: K61.1 Rectal abscess (principal); I11.0 Hypertensive heart disease with heart failure; I50.9 Heart failure, unspecified; I48.91 Unspecified atrial fibrillation; E78.00 Pure hypercholesterolemia, unspecified; J44.9 Chronic obstructive pulmonary disease, unspecified; E11.9 Type 2 diabetes mellitus without complications; F17.210 Nicotine dependence, cigarettes, uncomplicated; Z79.84 Long term (current) use of oral hypoglycemic drugs; Z79.899 Other long term (current) drug therapy; Z79.01 Long term (current) use of anticoagulants; Z48.817 Encounter for surgical aftercare following surgery on the skin and subcutaneous tissue
CPT/HCPCS: 96372; 99282; J2270; 99284

== ENCOUNTER 2023-12-03 09:05 | Day surgery (SDC) | payer MEDICAID ==
[2023-12-03] MEDS: Lactated Ringers 1,000 ML IV SCH (10:15)
[2023-12-03] MEDS ORDERED: HYDROmorphone 0.5 MG/0.5 ML Syringe ONE (10:39)
[2023-12-03] MEDS ORDERED: fentaNYL 250 MCG/5 ML SDV ONE (10:40)
[2023-12-03] MEDS ORDERED: Ondansetron 4 MG/2 ML SDV ONE (10:40)
[2023-12-03] MEDS ORDERED: Lidocaine 1% 5 ML VIAL ONE (10:40)
[2023-12-03] MEDS ORDERED: Midazolam 1 MG/ML 2 ML SDV ONE (10:40)
[2023-12-03] MEDS ORDERED: Propofol 200 MG/20 ML SDV ONE (10:41)
[2023-12-03] MEDS ORDERED: Succinylcholine 200 MG/10 ML MDV ONE (10:48)
[2023-12-03] MEDS ORDERED: Sodium Chloride 0.9% 10 ML Syringe FLUSH PRN (11:46)
[2023-12-03] MEDS: Albuterol 0.083% 2.5 MG/3 ML Neb Soln NEB SCH (12:33)
[2023-12-03] MEDS ORDERED: fentaNYL 100 MCG/2 ML SDV IVPUSH PRN (13:38)
[2023-12-03] MEDS ORDERED: Ondansetron 4 MG/2 ML SDV IVPUSH PRN (13:38)
[2023-12-03] MEDS ORDERED: HYDROmorphone 0.5 MG/0.5 ML Syringe IVPUSH PRN (13:38)
[2023-12-03] MEDS: EPINEPHrine 1 MG/ML SDV ONE (13:40)
[2023-12-03] MEDS: Bupivacaine 0.5% 30 ML SDV ONE (13:40)
[2023-12-03] MEDS: oxyCODONE 5 MG Tab PO PRN (15:15)
[2023-12-03] MEDS ORDERED: Sodium Chloride 0.9% 10 ML Syringe FLUSH SCH (21:00)
== END 2023-12-03 15:20 | disposition home or self-care (01) ==
LOC: JD.SDS 09:05
PROVIDERS: ATTEND Surgery
DX: K61.0 Anal abscess (principal); K61.1 Rectal abscess; I11.0 Hypertensive heart disease with heart failure; I50.20 Unspecified systolic (congestive) heart failure; E11.9 Type 2 diabetes mellitus without complications; J45.909 Unspecified asthma, uncomplicated; E78.5 Hyperlipidemia, unspecified; I48.91 Unspecified atrial fibrillation; F17.200 Nicotine dependence, unspecified, uncomplicated; Z79.01 Long term (current) use of anticoagulants; Z79.85 Long-term (current) use of injectable non-insulin antidiabetic drugs; Z79.899 Other long term (current) drug therapy
CPT/HCPCS: 46600; 82947; A9270; J0171; J0330; J0665; J1171; J2250; J2405; J2704; J3010; J7120; J3490; J7620-GY

== ENCOUNTER 2024-04-21 20:10 | Emergency (ER) | payer MEDICAID ==
[2024-04-21] MEDS: Sulfamethoxazole/Trimethoprim 800-160 MG Tab PO ONE (20:39)
[2024-04-21] MEDS: Cephalexin 500 MG Cap PO ONE (20:39)
[2024-04-21] MEDS: Acetaminophen/oxyCODONE 325-5 MG Tab PO ONE (20:47)
== END 2024-04-21 20:49 | disposition home or self-care (01) ==
LOC: JD.ED 20:10
DX: L02.214 Cutaneous abscess of groin (principal); I11.0 Hypertensive heart disease with heart failure; I50.9 Heart failure, unspecified; I48.91 Unspecified atrial fibrillation; J44.9 Chronic obstructive pulmonary disease, unspecified; E78.00 Pure hypercholesterolemia, unspecified; E11.9 Type 2 diabetes mellitus without complications; Z79.01 Long term (current) use of anticoagulants; Z79.899 Other long term (current) drug therapy; Z79.84 Long term (current) use of oral hypoglycemic drugs
CPT/HCPCS: 99282; A9270; 99283

== ENCOUNTER 2024-09-04 13:21 | Emergency (ER) | payer MEDICAID ==
[2024-09-04] MEDS ORDERED: Sodium Chloride 0.9% 10 ML Syringe FLUSH PRN (13:28)
[2024-09-04 13:58] LABS: BASOPHILS ABSOLUTE AUTO 0.1 K/mm3 (0.0-0.2); BASOPHILS PERCENT AUTO 0.6 % (0.0-1.0); EOSINOPHILS ABSOLUTE AUTO 0.6 K/mm3 (0.0-0.4); EOSINOPHILS PERCENT AUTO 7.5 % (0.0-6.0); IMMATURE GRAN ABSOLUTE AUTO 0.05 K/mm3 (0.00-0.05); IMMATURE GRAN PERCENT AUTO 0.6 % (0.0-0.4); LYMPHOCYTES ABSOLUTE AUTO 2.6 K/mm3 (1.0-4.8); LYMPHOCYTES PERCENT AUTO 34.1 % (24.0-44.0); MEAN PLATELET VOLUME 12.0 fl (9.4-12.4); MONOCYTES ABSOLUTE AUTO 0.9 K/mm3 (0.0-0.8); MONOCYTES PERCENT AUTO 11.4 % (0.0-8.0); NEUTROPHILS ABSOLUTE AUTO 3.5 K/mm3 (1.8-7.7); NEUTROPHILS PERCENT AUTO 45.8 % (41.0-71.0); NRBC ABSOLUTE 0.00 (0.00-0.02); NRBC PERCENT 0.0 % (0.0-0.2); PLATELET COUNT,PLT 187 K/mm3 (150-400); RED BLOOD CELL COUNT 5.68 M/mm3 (4.52-5.90); WHITE BLOOD CELL COUNT,WBC 7.71 K/mm3 (3.9-11.3)
[2024-09-04 14:18] LABS: A/G RATIO 0.8 (1-2); ALANINE AMINOTRANSFERASE,ALT 49.0 U/L (16-63); ASPARTATE AMNIOTRANSFERASE,AST 32.0 U/L (15-37); BILIRUBIN TOTAL 0.6 mg/dL (0.2-1.0); BLOOD UREA NITROGEN,BUN 35.0 mg/dL (7-18); CARBON DIOXIDE,CO2 31.0 mEq/L (21-32); CHLORIDE,CL 102.0 mEq/L (98-107); CREATININE 1.4 mg/dL (0.7-1.3); EST CRCL DRUG DOSING (CG) 54.71 mL/min; ESTIMATED GFR 57.0 mL/min (>60); GLUCOSE RANDOM 280.0 mg/dL (70-99); POTASSIUM,K 5.7 mEq/L (3.5-5.1); PROTEIN TOTAL,TP 9.1 g/dl (6.4-8.2); SODIUM,NA 139.0 mEq/L (136-145); TROPONIN I HIGH SENSITIVITY 30.0 pg/mL (<=76)
== END 2024-09-04 15:49 | disposition home or self-care (01) ==
LOC: JD.ED 13:21
DX: J44.0 Chronic obstructive pulmonary disease with (acute) lower respiratory infection (principal); J44.1 Chronic obstructive pulmonary disease with (acute) exacerbation; J18.9 Pneumonia, unspecified organism; I11.0 Hypertensive heart disease with heart failure; I50.9 Heart failure, unspecified; I48.91 Unspecified atrial fibrillation; E11.9 Type 2 diabetes mellitus without complications; F17.200 Nicotine dependence, unspecified, uncomplicated; Z79.899 Other long term (current) drug therapy
CPT/HCPCS: 36415; 71045; 80053; 83880; 84484; 85025; 93005; 94640; 96374; 99285; J0696; J7512; J7620; Q0144; A9270-GY